=== PATIENT | female | born 1950 | race Caucasian/White ===

== ENCOUNTER 2024-08-02 13:19 | Outpatient (CLI) | payer MEDICARE | END 2024-08-02 13:20 | disposition home or self-care (01) | LOC: CSHMAMMO 13:19 | PROVIDERS: ATTEND Family Medicine | DX: Z12.31 Encounter for screening mammogram for malignant neoplasm of breast (principal); M81.0 Age-related osteoporosis without current pathological fracture; N95.9 Unspecified menopausal and perimenopausal disorder; Z80.3 Family history of malignant neoplasm of breast | CPT/HCPCS: 77063; 77067; 77080 ==

== ENCOUNTER 2024-10-22 08:02 | Outpatient (CLI) | payer MEDICARE | END 2024-10-22 08:03 | disposition home or self-care (01) | LOC: CSHCT 08:02 | PROVIDERS: ATTEND Physician Assistant Medical | DX: K21.9 Gastro-esophageal reflux disease without esophagitis (principal); K44.9 Diaphragmatic hernia without obstruction or gangrene; Z86.0100 Personal history of colon polyps, unspecified; K76.9 Liver disease, unspecified; D73.9 Disease of spleen, unspecified; N28.1 Cyst of kidney, acquired; K59.00 Constipation, unspecified | CPT/HCPCS: 36415; 74177; 82565 ==

== ENCOUNTER 2025-01-10 09:38 | Outpatient (CLI) | payer OTHER | END 2025-01-10 09:39 | disposition home or self-care (01) | LOC: CSHULT 09:38 | PROVIDERS: ATTEND Family Medicine | DX: R09.89 Other specified symptoms and signs involving the circulatory and respiratory systems (principal) | CPT/HCPCS: 93880 ==

== ENCOUNTER 2025-10-09 13:26 | Outpatient (CLI) | payer OTHER | END 2025-10-09 13:27 | disposition home or self-care (01) | LOC: CSHMAMMO 13:26 | PROVIDERS: ATTEND Family Medicine | DX: Z12.31 Encounter for screening mammogram for malignant neoplasm of breast (principal); Z80.3 Family history of malignant neoplasm of breast | CPT/HCPCS: 77063; 77067 ==